=== PATIENT | female | born 1950 | race Caucasian/White ===

== ENCOUNTER 2017-03-28 15:38 | Emergency (ER) | payer BC, OTHER ==
--- NOTE | 2017-03-28 16:15 | EDM.PDOC ---
ED HPI GENERAL MEDICAL PROBLEM - General Chief Complaint: Neuro Symptoms/Deficits Stated Complaint: SLURRED SPEECH/NO CONTROL L ARM Time Seen by Provider: 03/28/17 16:00 Source of Information: Reports: Patient, Family History Limitations: Reports: No Limitations - History of Present Illness INITIAL COMMENTS - FREE TEXT/NARRATIVE: 58-year-old female, otherwise healthy was working today and 45 minutes ago developed a combination of dysarthria and weakness and lack of coordination of her left arm. She had no headache, visual disturbance, chest pain, palpitations , lower extremity weakness or numbness, or nausea or vomiting. She's had no recent illness. She's had a history of migraine headaches but nothing presenting like the symptoms. Her has been concerned because over the last several weeks her mood has been different, she's been more irritable for no reason. She denies any nighttime headaches. The symptoms are markedly improving, her speech is almost normal and her hand just feels a little heavy. Onset: Sudden Duration: Hour(s): (45 minutes ago) Location: Reports: Face, Upper Extremity, Left Severity: Moderate Improves with: Reports: Other (Seems to be improving with time) Associated Symptoms: Reports: Weakness. Denies: Confusion, Fever/Chills, Headaches, Loss of Appetite, Malaise, Shortness of Breath - Related Data Allergies Allergy/AdvReac Type Severity Reaction Status Date / Time No Known Allergies Allergy Verified 03/28/17 16:02 Home Meds: Home Meds Chrom Caitlyn/Brindal Stone [Garcinia Cambogia Tablet] 1 each PO DAILY 03/28/17 [ History] Multivit-Min/Iron Fum/Folic AC [Hefqc-Xfdoaou-Rtrvgwme Tablet] 1 each PO DAILY 03/28/17 [History] ED ROS GENERAL - Review of Systems Review Of Systems: See Below (Left arm) Constitutional: Denies: Fever, Chills, Malaise Respiratory: Denies: Shortness of Breath, Cough Cardiovascular: Denies: Chest Pain Endocrine: Denies: Fatigue GI/Abdominal: Denies: Abdominal Pain, Nausea, Vomiting : Reports: No Symptoms Skin: Reports: No Symptoms Neurological: Reports: Other (See history of present illness). Denies: Headache Psychiatric: Reports: Other (Patient admits being irritable for the last 2-3 weeks) ED EXAM, NEURO - Physical Exam Exam: See Below Exam Limited By: No Limitations General Appearance: Alert, No Apparent Distress Eye Exam: Bilateral Eye: EOMI, Normal Inspection Throat/Mouth: Normal Inspection Head Exam: Atraumatic, Other (Facial muscles are symmetric) Respiratory/Chest: No Respiratory Distress Cardiovascular: Regular Rate, Rhythm. No: Extra Beats GI/Abdominal: Normal Bowel Sounds Neurological: Alert, Normal Mood/Affect, No Motor/Sensory Deficits, Oriented x 3 , Other (Only significant finding is a subjective heaviness of the left arm) Extremities: Normal Inspection Psychiatric: Normal Affect, Normal Mood Skin Exam: Warm, Dry Course - Vital Signs Last Recorded V/S: Last Vital Signs Temp 98.4 F 03/28/17 16:00 Pulse 63 03/28/17 17:20 Resp 18 03/28/17 17:20 BP 148/72 H 03/28/17 17:20 Pulse Ox 98 03/28/17 17:20 - Orders/Labs/Meds Orders: Active Orders 24 hr Category Date Time Status Head wo Cont [CT] Stat Exams 03/28/17 16:08 Taken Labs: Laboratory Tests 03/28/17 03/28/17 Range/Units 16:08 16:08 WBC 5.4 (4.5-11.0) K/uL RBC 5.04 (3.30-5.50) M/uL Hgb 14.5 (12.0-15.0) g/dL Hct 43.0 (36.0-48.0) % MCV 85 (80-98) fL MCH 29 (27-31) pg MCHC 34 (32-36) % Plt Count 255 (150-400) K/uL Neut % (Auto) 50 (36-66) % Lymph % (Auto) 36 (24-44) % [place] % (Auto) 11 H (2-6) % Eos % (Auto) 3 (2-4) % Baso % (Auto) 0 (0-1) % Sodium 141 (140-148) mmol/L Potassium 4.0 (3.6-5.2) mmol/L Chloride 103 (100-108) mmol/L Carbon Dioxide 29 (21-32) mmol/L Anion Gap 9.3 (5.0-14.0) mmol/L BUN 10 (7-18) mg/dL Creatinine 0.8 (0.6-1.0) mg/dL Est Cr Clr Drug Dosing 48.34 mL/min Estimated GFR (MDRD) > 60 (>60) Glucose 114 H (74-106) mg/dL Calcium 8.8 (8.5-10.1) mg/dL Total Bilirubin 0.3 (0.2-1.0) mg/dL AST 23 (15-37) U/L ALT 29 (12-78) U/L Alkaline Phosphatase 75 (46-116) U/L Total Protein 6.8 (6.4-8.2) g/dL Albumin 3.5 (3.4-5.0) g/dL Globulin 3.3 (2.3-3.5) g/dL Albumin/Globulin Ratio 1.1 L (1.2-2.2) Meds: Medications Discontinued Medications Generic Name Dose Route Start Last Admin Trade Name Freq PRN Reason Stop Dose Admin Aspirin 324 mg 03/28/17 17:03 03/28/17 17:15 Aspirin PO 03/28/17 17:04 324 mg ONETIME ONE Administration Sodium Chloride 1,000 mls @ 125 mls/hr 03/28/17 17:15 03/28/17 17:09 Normal Saline IV 125 mls/hr ASDIRECTED KATERINA Administration - Re-Assessments/Exams Free Text/Narrative Re-Assessment/Exam: 03/28/17 17:[address] scan showed no acute findings. She did have generous sized pituitary gland. There was some chronic vessel changes. Findings were discussed with interventional neurology at [place], a full dose aspirin was given and IV fluids were started at 125 mL an hour. CBC and CMP returned reassuring. Patient will be transferred to [place] by air care at the recommendation of the interventional neurologist. Departure - Departure Time of Disposition: 17:42 Disposition: DC/Tfer to Other Condition: Good Clinical Impression: Cerebrovascular accident (CVA) Qualifiers: CVA mechanism: unspecified Qualified Code(s): I63.9 - Cerebral infarction, unspecified - Discharge Information Referrals: PCP,None [Primary Care Provider] - Forms: ED Department Discharge Care Plan Goals: Patient is to be urgently transferred by air to [place] for a stroke/TIA evaluation. - My Orders Last 24 Hours: My Active Orders 03/28/17 16:08 Head wo Cont [CT] Stat - Assessment/Plan Last 24 Hours: My Active Orders 03/28/17 16:08 Head wo Cont [CT] Stat
[2017-03-28] MEDS ORDERED: Aspirin 81 MG Tab.Chew PO ONE (17:03)
[2017-03-28] MEDS ORDERED: Sodium Chloride 0.9% 1,000 ML IV SCH (17:15)
== END 2017-03-28 17:30 | disposition other institution (70) ==
LOC: JP.ED 15:38
DX: I63.9 Cerebral infarction, unspecified (principal)
CPT/HCPCS: 36415; 70450; 80053; 85025; 99285; A9270; J7040; J7030

== ENCOUNTER 2017-04-21 07:46 | Day surgery (SDC) | payer OTHER ==
[2017-04-21] MEDS ORDERED: fentaNYL 100 MCG/2 ML SDV ONE (08:28)
[2017-04-21] MEDS ORDERED: Propofol 200 MG/20 ML SDV ONE (08:28)
[2017-04-21] MEDS ORDERED: Midazolam 1 MG/ML 2 ML SDV ONE (08:28)
[2017-04-21] MEDS ORDERED: Lactated Ringers 1,000 ML IV SCH (08:30)
--- NOTE | 2017-04-21 17:35 | OR ---
DATE OF PROCEDURE: 04/21/2017 PREOPERATIVE DIAGNOSIS: Colon cancer screening. POSTOPERATIVE DIAGNOSIS: Unremarkable colonoscopy. PROCEDURE: Colonoscopy to the cecum. SURGEON: Hermilo Holguin MD. ANESTHESIA: IV anesthesia with monitored anesthesia care. INDICATIONS: This 66-year-old white female is referred for a colonoscopy for colon cancer screening. She says her last colonoscopic exam was done over ten years ago. At one point, she said she might have had some polyps, possibly these were hyperplastic since she has a ten year followup. I counseled her for a colonoscopy with possible biopsy and/ or polypectomy including risks and alternatives, and she gave her informed consent to proceed. DESCRIPTION OF PROCEDURE: The patient was placed in the left lateral decubitus position. IV anesthesia was administered by the Anesthesia Service. Time-out was held. A rectal exam was performed, which was unremarkable. The flexible video Olympus colonoscope was introduced through her anus, up her rectum, and out her colon all the way to the cecum. Once the cecum was reached, the scope was slowly withdrawn, examining the mucosa throughout. No mucosal abnormalities were noted. The scope was retroflexed in the rectum with the distal rectum appearing unremarkable. The scope was straightened and removed. She tolerated the procedure well. Hermilo Holguin MD /[id number] MTDD
== END 2017-04-21 11:36 | disposition home or self-care (01) ==
LOC: JP.SDS 07:46
PROVIDERS: ATTEND Surgery
DX: Z12.11 Encounter for screening for malignant neoplasm of colon (principal)
CPT/HCPCS: 45378; J2250; J2704; J3010; J7120